=== PATIENT | female | born 1980 | race Caucasian/White ===

== ENCOUNTER → 2017-05-20 | Outpatient (CLI) | payer BC ==
[~2017-05-20] MED LIST: CYCL10TA6 PO; FLUT0.0529 INH; FOLI1TAB7 PO; LEVO50TA PO; MULT-506 PO; ONDA4TAB65 PO; SUMA50TA15 PO
== END | disposition home or self-care (01) ==
LOC: C.PAPS 15:46
PROVIDERS: ATTEND Obstetrics & Gynecology
DX: Z01.419 Encounter for gynecological examination (general) (routine) without abnormal findings (principal)